=== PATIENT | male | born 1985 | race Caucasian/White ===

== ENCOUNTER 2018-06-29 05:45 | Day surgery (SDC) | payer OTHER ==
[2018-06-29] MEDS ORDERED: MIDAZOLAM 1 MG/ML 2 ML INJ ×2 (08:08)
[2018-06-29] MEDS ORDERED: FENTAnyl 50 MCG/ML VIAL (08:09)
== END 2018-06-29 11:24 | disposition home or self-care (01) ==
LOC: GIL 05:45
DX: K29.30 Chronic superficial gastritis without bleeding (principal); K21.0 Gastro-esophageal reflux disease with esophagitis; K44.9 Diaphragmatic hernia without obstruction or gangrene; K29.70 Gastritis, unspecified, without bleeding
CPT/HCPCS: 43239; 88305; 88312